=== PATIENT | male | born 1940 | race Caucasian/White ===

== ENCOUNTER 2016-11-03 12:34 | Inpatient (IN) | payer MEDICARE, OTHER ==
[~2016-11-03] VITALS: Ht 177.8 cm; Wt 134.7 kg
--- NOTE | ~2016-11-03 | DS ---
PATIENT'S NAME: SHALOM LIZ [facility] AGE: 76 Y [address] ROOM: [address] [place] [address] LOCATION: GPCU ADMIT DATE: 11/03/2016 Discharge Summary DISCHARGE DATE: 11/08/2016 FAMILY PHYSICIAN: Osbaldo Johnson MD ATTENDING PHYSICIAN: Osbaldo Johnson DISCHARGE DIAGNOSES: Include [id number] congestive heart failure, combined systolic and diastolic. Ejection fraction was difficult to determine based on his echo. SECONDARY DIAGNOSES: Include: 1. Obstructive sleep apnea on BiPAP. 2. Chronic lower extremity edema. 3. Chronic kidney disease, stage 3. 4. Chronic atrial fibrillation. PRINCIPLE PROCEDURES: Include echocardiogram and stress test. The stress test was interpreted. Initially, they thought there might be signs of ischemia, but when Dr. Stanley looked at it, he really thought that it was more of a fixed defect. FOLLOWUP: Follow up is with Dr. Johnson in 7-[address] Stanley in 2 weeks. DIET: His discharge diet is to be a diabetic 1800 mL 2 g sodium restriction diet. He is to also do daily weights. DISCHARGE MEDICATIONS: Include: 1. Furosemide 40 mg daily. 2. Glimepiride 2 mg every morning. 3. Metoprolol 25 mg p.o. b.i.d. 4. Omeprazole 40 mg daily. 5. Potassium 20 mEq daily. 6. Pravachol 40 mg daily. 7. Flomax 0.4 mg daily. 8. Warfarin 5 mg Mondays and and 2.5 mg the rest of the week. 9. [place] 5/325 one tab every 4 hours as needed for pain. 10. He has BiPAP and Colace p.r.n. for stool softener. 11. We did discontinue his pioglitazone to his CHF and we also discontinued his Rythmol as the patient does look like he is in chronic atrial fib. HISTORY OF PRESENT ILLNESS: The patient was admitted by my partner Dr. Danny Hendrix and Dr. Fan was consulted for Cardiology. He was having worsening acute shortness of breath with some left lateral chest discomfort, left shoulder pain, along with palpitations. He presented to the office and was PATIENT'S NAME: SHALOM LIZ [facility] AGE: 76 Y [address] ROOM: [address] [place] [address] LOCATION: GPCU ADMIT DATE: 11/03/2016 Discharge Summary DISCHARGE DATE: 11/08/2016 FAMILY PHYSICIAN: Osbaldo Johnson MD ATTENDING PHYSICIAN: Osbaldo Johnson evaluated by Dr. Hendrix and was sent over for admit. Dr. Stanley is his normal radar tester, but Dr. Fan consulted as he was unavailable. HOSPITAL COURSE: The patient was admitted to [facility] and placed in PCU with a congestive heart failure exacerbation. Accurate I's and O's and daily weights were ordered. Labs were ordered. He was found to have a supratherapeutic INR; so, his warfarin was held. He had EKG and echo done. He was initially started on a Lasix drip. A Cedeño was placed and he was found to be in urinary retention. His warfarin was held due to supratherapeutic INR. Daily weights were monitored and a pro-BNP was ordered, which came back I believe around 10,000 or so. The patient was kept n.p.o. and a Lexiscan was done, which basically just showed a fixed defect. On the Lexiscan, his EF was calculated at 39%. He was in a ventricular paced rhythm with his underlying rhythm of chronic atrial fib. At that point in time, it was thought best that we just needed to tune him up with his chronic kidney disease; of course, we need to monitor things there. The patient's potassium was low so that was replaced. He was on O2 and eventually that was able to be weaned off. Physical Therapy worked with the patient. He was able to ambulate well in the hallways with a walker. They were initially thinking about doing a cath, but Dr. Stanley elected not to proceed along that line. His propafenone or Rythmol was discontinued since he was in chronic atrial fib. He has had previous cardioversions; and at this point in time, Dr. Stanley just think it is going to be a permanent atrial fib issue. His potassium was replaced as needed. I did discontinue his pioglitazone due to his CHF. We will of course need to keep an eye on his diabetes at home. He was found on his x-ray to have a left pleural effusion, but it is improving. The patient's situation overall seemed to improve, he got off O2, he has been ambulating well in the [place]; so, we will dismiss him to home. We did get the congestive heart failure educator to talk to him and we stressed the importance of maintaining a low-sodium fluid-restricted diet long-term. We also encouraged the patient to weigh his weights daily and if he is up more than 2 pounds he is to let me know. The patient's and family's questions were answered. He will be dismissed to home. MD NAE HANNA/abby /[id number] d: 11/08/16 2329 t: 11/22/16 1355, DISCHARGE SUMMARY
--- NOTE | ~2016-11-03 | ESTC ---
Cardiac Perfusion Imaging Demographics Patient Name AGUSTO Grullon Gender Male Patient Number [id number] Race Visit Number [id number] Ethnicity Corporate ID Room Number G6322 Accession Number [id number] Height 70 inches Date of 1940 Weight 300 pounds Interpreting [facility] [place] Date of study 11/04/2016 Physician Kishore Ryan MD Supervising MD/MLP Kishore Ryan NM Technologist Ordering Physician Stress public works technician Stress ECG Reading Kishore Ryan Nurse Iraj Miles Physician mill tender warm up Procedure Type: Nuclear Stress Test:Cardiolite Stress Test Procedure Start time: 11/04/2016 10:27 Indications: Non-ischemic cardiomyopathy. Conclusions Summary Perfusion Images: The overall quality of the study is poor, due to extracardiac tracer uptake. Left ventricular cavity is noted to be enlarged on the stress and enlarged on the rest images. There is no evidence of abnormal lung activity. The right ventricle is not visualized an cannot be assessed. Impression ECG portion of the lexiscan stress test is clinically nondiagnostic for ischemia by diagnostic criteria due to paced ventricular beats. Myocardial perfusion imaging is moderately abnormal. The images reveal a mostly fixed defect in the entire septal wall and basal to mid inferior wall consistent with infarct . The septal wall motion and perfusion defect could be secondary to paced ventricular beats. Overall left ventricular systolic function was abnormal. Calculated LVEF is 39%, TID ratio is 0.95. LV volumes are increased, LVEDV is 162 mls. This is a intermediate risk stress test. Stress Protocols Resting ECG Ventricular paced rhythm. Underlying rhythm appears to be atrial fib. Resting HR:80 bpm Pre-stress physical exam: s1 s2, rrr no wheezing Predicted HR: 144 bpm ECG Findings Paced ventricular beats. Arrhythmias remained in afib Symptoms Shortness of breath. Aminophylline 125 mgs given iv for reversing symptoms of severe sob after lexiscan infusion. Stress Interpretation Appropriate hemodynamic response to Lexiscan. No significant ST-T wave changes with Lexiscan. ECG portion is non diagnostic for ischemia by diagnostic criteria given underlying paced ventricular beats. Imaging Results Summed scores - Summed stress score: 14 - Summed rest score: 14 - Summed difference score: 0 Stress ejection Ejection fraction:39 % EDV :162 ml ESV :99 ml Stroke volume :63 ml LV mass :166 gr Imaging Protocols Rest Stress Isotope:Tc99m Sestamibi IV Isotope: Tc99m Sestamibi IV Isotope dose:16.3 mCi Isotope dose:49.3 mCi Date:11/04/2016 08:48 Date:11/04/2016 10:40 Technique: SPECT Technique: Gated Supine SPECT Supine IV remains in place after procedure. Scan Time:45-60 minutes post Scan Time:45-60 minutes post injection injection Procedure Medications - Regadenoson (Lexiscan) 0.4 mg IV over 10-15 sec. I.V. . - Aminophylline 50 mg IV I.V. 125 mg. Medical History Admission Data Admission date: 11/03/2016 Admission Time: 12:34 Hospital Status: Inpatient. Signatures dtt: JOE GOLDEN dtd: 11/04/16 1027 Physician Self Edit
--- NOTE | ~2016-11-03 | CON ---
PATIENT'S NAME: SHALOM LIZ [facility] AGE: 76 Y [address] ROOM: [place] [address] LOCATION: GPCU ADMIT DATE: 11/03/2016 Consultation DISCHARGE DATE: FAMILY PHYSICIAN: Osbaldo Johnson MD ATTENDING PHYSICIAN: Osbaldo Johnson DATE OF CONSULTATION: 11/03/2016 REFERRING PHYSICIAN: JOE GOLDEN MD ADDENDUM: LABORATORY DATA: PT 45.2. INR 4.1. BNP 1030. Sodium 142, potassium 4.6, glucose 141, CO2 of 27, chloride 103, BUN 33, and creatinine 2.1. EGFR 32. Liver enzymes normal. CK 21, CK-MB 0.6, and troponin 0.064. EKG showed paced ventricular beats with underlying atrial fibrillation. WBC 8.3, H and H 10.6 and 34, and platelets 230. No recent echocardiogram, so I will also get an echocardiogram to assess his LVEF and valvular function as well as diastolic function. JOE GOLDEN MD AT/modl /[id number] d: 11/03/16 2219 t: 11/06/16 1009, CONSULTATION REPORT
--- NOTE | ~2016-11-03 | ECHO ---
Transthoracic Echocardiography Report (TTE) Demographics Patient Name SHALOM LIZ Date of Study 11/04/2016 Patient Number [id number] Visit Number [id number] Date of 1940 Room Number G6322 Gender Male Number Age 76 year(s) Referring Kishore Ryan Head Inspector Dylan Chilel SHARAD Physician Physician Interpreting Kishore Ryan Metal Bonder Physician MD Supervising Ordering Kishore Ryan MD/MLP Physician MD Nurse Stress Train Reservation Clerk Conclusions Summary Technically difficult exam. LV systolic function appears mild to moderately reduced. Difficult to accurately estimate LVEF due to suboptimal visualization of endocardial borders and poor echo windows. Moderate concentric left ventricular hypertrophy. Severely dilated right ventricle with mildly reduced right ventricular function. The left atrium is mildly dilated by LA volume index measurement. The right atrium is moderately dilated. Dilated IVC, 2.4 cms with poor inspiratory collapse consistent with elevated RA pressure. There is moderate pulmonary hypertension. The pulmonary pressure (RVSP) is 56 mmHg. There is evidence of a patent foramen ovale by color Doppler. Informed consent was obtained, bubble study was done, bubbles crossed to the left atrium suggesting a PFO or ASD. Left pleural effusion noted. Procedure Type of Study TTE procedure:2D Echocardiogram, M-Mode, Doppler , Color Doppler. Procedure Date Date: 11/04/2016 Start: 12:34 PM Study Location: Inpatient Portable Technical Quality: Adequate visualization Indications:Congestive heart failure. Patient Status: Routine Contrast Medium: Bubble Study. Rhythm: Within normal limits HR: 60 bpm BP: 137/77 mmHg Allergies - No known allergies. M-Mode/2D Measurements LV Diastolic Dimension: 5.09 cm LV Systolic Dimension: 3.12 cm LV Septum Diastolic: 1.27 cm LV PW Diastolic: 1.26 cm AO Root Dimension: 2.9 cm Cardiac Output: 4.08 l/min LA Dimension: 3.2 cm LVOT: 2.2 cm LVOT VTI: 17.9 cm RV Base: 5.37 cm LV Stroke volume: 68.01 ml RV Length: 8.49 cm TAPSE: 1.46 cm TDI-S': 8.22 cm/s Doppler Measurements AV Peak Velocity: 1.25 m/s MV Peak E-Wave: 1.06 m/s AV Peak Gradient: 6.25 mmHg MV Peak A-Wave: 0.34 m/s AV Mean Gradient: 3 mmHg MV E/A Ratio: 3.12 LVOT Peak Velocity: 0.95 m/s MV P1/2t: 51 msec TR Gradient:35.28 mmHg PV Peak Velocity: 1.31 m/s Estimated RAP:20 mmHg PV Peak Gradient: 6.86 mmHg Estimated RVSP: 55 mmHg Estimated PASP: 55.28 mmHg E' Septal Velocity: 0.12 m/s A' Septal Velocity: 0.07 m/s E' Lateral Velocity: 0.13 m/s A' Lateral Velocity: 0.05 m/s Findings Left Ventricle Moderate concentric left ventricular hypertrophy. Diastolic function indeterminate due to patient's arrhythmia. Paradoxical septal motion due to the pacemaker lead . Right Ventricle Mildly reduced right ventricular function. Severely dilated right ventricle. Left Atrium The left atrium is mildly dilated by LA volume index measurement. There is evidence of a patent foramen ovale by color Doppler. Informed consent was obtained, bubble study was done, bubbles crossed to the left atrium suggesting a PFO or ASD. Right Atrium Device lead seen in the right atrium. The right atrium is moderately dilated. Dilated IVC, 2.4 cms with poor inspiratory collapse consistent with elevated RA pressure. Mitral Valve Normal mitral valve structure and function. Aortic Valve Normal aortic valve structure and function. Tricuspid Valve Mild tricuspid regurgitation by color Doppler. There is moderate pulmonary hypertension. The pulmonary pressure (RVSP) is 56 mmHg. Pulmonic Valve Normal pulmonic valve structure and function. Pericardial Effusion Small posterior pericardial effusion. Miscellaneous Visualized portions of the aortic root and ascending aorta appear normal in size. Pleural Effusion Left pleural effusion noted. Signature dtt: JOE GOLDEN dtd: 11/04/16 1234 Physician Self Edit
--- NOTE | ~2016-11-03 | CON ---
PATIENT'S NAME: SHALOM LIZ [facility] AGE: 76 Y [address] ROOM: [address] [place], [place] [address] LOCATION: GPCU ADMIT DATE: 11/03/2016 Consultation DISCHARGE DATE: FAMILY PHYSICIAN: Osbaldo Johnson MD ATTENDING PHYSICIAN: Danny Hendrix REFERRING PHYSICIAN: JOE GOLDEN MD REQUESTING PROVIDER: Dr. Danny Hendrix. REASON FOR CONSULTATION: Shortness of breath. HISTORY OF PRESENTING ILLNESS: The patient is a very pleasant, 76-year-old male, Pt of Dr. Stanley. 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 He has history of paroxysmal atrial fibrillation for which he has had 2 cardioversions in the past. He also had Mobitz type II AV block for which he underwent permanent pacemaker implantation about 2 years ago. He has history of obstructive sleep apnea, on BiPAP. He also has been on antiarrhythmic (propafenone) as well as long-term oral anticoagulation with Coumadin. He is morbidly obese. He has urinary obstruction and self-catheterizes himself. He also has history of chronic kidney disease. He is diabetic, and he is on pioglitazone for that. His last cath was in 2004, with non obstructive CAD. The patient reports this morning he started having acute shortness of breath associated with left-sided chest pain and left shoulder pain along with palpitations and mild diaphoresis for about 10 minutes. It resolved on its own. He called his primary care doctor's office and they asked him to come to their clinic or call 911 depending on how bad his symptoms are. He ended up going to the primary care office to get evaluated further. He did receive a chest x-ray there, which is suggestive of volume overload and congestive heart failure. The patient reports while he got up to go to his car he had recurrent symptoms of shortness of breath, but did not have chest pain at that time. He has not had any recurrence in his chest pain. He reports occasional palpitations, but during interview after oxygen was started, he reports he is much better. He is being admitted for acute CHF exacerbation. The patient reports he has not urinated since yesterday. He did not get a chance to self-catheterize himself for the last 18 hours. No cough or sputum production. No fever or chills. He does not have any stroke-like symptoms. No abdominal pain, nausea, vomiting, diarrhea, or constipation. REVIEW OF SYSTEMS: PATIENT'S NAME: SHALOM LIZ [facility] AGE: 76 Y [address] ROOM: [address] [place], [place] [address] LOCATION: GPCU ADMIT DATE: 11/03/2016 Consultation DISCHARGE DATE: FAMILY PHYSICIAN: Osbaldo Johnson MD ATTENDING PHYSICIAN: Danny Hendrix Ten-point review of systems discussed with the patient, pertinent positives and negatives mentioned in the history of presenting illness. HOME MEDICATIONS: 1. Propafenone 225 mg t.i.d. 2. Metoprolol 25 mg b.i.d. 3. Glimepiride 2 mg daily. 4. Pravachol 40 mg at bedtime. 5. Tamsulosin 0.4 mg daily. 6. Coumadin 5 mg and 2.5 mg depending on the day. 7. Pioglitazone 45 mg daily. 8. Lasix 40 mg every other day and 80 mg every other day. 9. [place] 5/325 mg p.r.n. 10. BiPAP. 11. Colace 100 mg daily. 12. Omeprazole 40 mg daily. ALLERGIES: NONE. PAST MEDICAL HISTORY: Paroxysmal atrial fibrillation, post-cardioversion August 20, 2013 and July 20, 2014; long-term anticoagulation with warfarin; Mobitz type II AV block requiring [employer]ando's dual-chamber pacemaker; obstructive sleep apnea, on BiPAP at night without oxygen; high-risk medications, propafenone; hypertension; diabetes mellitus type 2, on oral meds; hyperlipidemia; nonobstructive coronary artery disease per records; obesity; and venous insufficiency. PAST SURGICAL HISTORY: Umbilical hernia repair, left heart cath in 2004, colonoscopy in 2008, cardioversion in August and July of 2014, and [employer] pacemaker in August of 2013. FAMILY HISTORY: No premature coronary artery disease or sudden cardiac . SOCIAL HISTORY: Tobacco abuse: He smoked for 34 years 1 pack per day and quit in 1989. No alcohol or illicit drug abuse. PHYSICAL EXAMINATION: VITAL SIGNS: Blood pressure 140/90, respirations 18, O2 saturations 95% on 2 L of oxygen, tele paced ventricular beats with underlying sinus, afebrile. GENERAL: Well nourished, obese, not in any apparent distress. PATIENT'S NAME: SHALOM LIZ [facility] AGE: 76 Y [address] ROOM: [address] [place] [id number] LOCATION: GPCU ADMIT DATE: 11/03/2016 Consultation DISCHARGE DATE: FAMILY PHYSICIAN: Osbaldo Johnson MD ATTENDING PHYSICIAN: Danny Hendrix HEENT: Normocephalic. Mucous membranes moist. Extraocular movements are intact. Sclerae white. No xanthelasmas. NECK: Supple. No significant JVD. HEART: S1, S2. Regular rate and rhythm. No murmurs, gallops, or rubs. LUNGS: Decreased breath sounds in the right base. No wheezing. ABDOMEN: Obese. Bowel sounds positive. EXTREMITIES: Mild bilateral lower extremity edema. NEUROLOGIC: Oriented to place, person. No focal deficits. Able to move all extremities against gravity. DERM: Skin is warm and dry. PSYCH: Mood and affect are normal. ASSESSMENT: 1. Congestive heart failure exacerbation. 2. Chest pain. 3. Palpitations. 4. Diabetes mellitus type 2. 5. History of dual-chamber pacemaker for Mobitz type II AV block. 6. Long-term anticoagulation with Coumadin and supratherapeutic INR of 4.1. 7. Obstructive sleep apnea, on BiPAP. 8. Hyperlipidemia. 9. Chronic kidney disease, stage 3. 10. Afib, pt's underlying rhythma appears to be afib, with paced ventricular beats. PLAN: At this time, the patient appears to have significant urinary retention, placed Cedeño and got about 2 L of urine output. I will continue to monitor I's and O's closely. We will hold his oral Lasix and start IV Lasix 40 mg IV b.i.d. We will check proBNP and if he rules out NH, I think given the chest pain, diaphoresis as well as recurrent episodes of dyspnea, it is reasonable to get an ischemic workup at this time. We will go ahead and order a Lexiscan stress test. Depending on his urine output, we will likely switch to p.o. Lasix tomorrow. I do see episodes of atrial fibrillation off and on; however, he is on anticoagulation for this and his rates are very well controlled. We will also check his fasting lipid profile and adjust his statin if necessary. Consider discontinuing pioglitazone given his CHF exacerbation and use alternate agent if possible. Avoid NSAIDs and nephrotoxic agents. We will continue oxygen during the daytime and resume his BiPAP at night during this hospitalization. We will get strict I's and O's. Keep O2 saturations greater than 90%. Low- salt diet. PATIENT'S NAME: SHALOM LIZ [facility] AGE: 76 Y [address] ROOM: [address] [address] [facility] AD[facility] DATE: 11/03/2016 Consultation DISCHARGE DATE: FAMILY PHYSICIAN: Osbaldo Johnson MD ATTENDING PHYSICIAN: Danny Hendrix Since his INR is supratherapeutic, we will hold the Coumadin and restart once it is less than 3. Thank you very much for allowing us to participate in the care of Mr. Liz, and we will follow the patient while motion picture printer and let Dr. Stanley know after the weekend. Will interrogate pacemaker to evaluate afib burden. Thank you very much, Dr. Hendrix. JOE GOLDEN MD AT/modl /[id number] d: 11/03/164 t: 11/06/16 1004, CONSULTATION REPORT
[~2016-11-03 12:34] MED LIST: ACTOS45 MG PO; AMARYL2 MG PO; BIPAP INH; COLACE100 MG PO; COUMADIN ** IA5 MG PO; CPAP INH; FLOMAX0.4 MG PO; LASIX40 MG PO; LOPRESSOR25 MG PO; LOVENOX 12120 MG/0.8 SUB-Q; NORCO 5-325 TA1 EACH PO; OXYGEN M-15 INH; PRAVACHOL40 MG PO; PRILOSEC40 MG; RYTHMOL225 M1 PO
[2016-11-03] MEDS ORDERED: LASIX40 MG PO (14:08)
[2016-11-03] MEDS ORDERED: OMEPRAZOLE40 MG PO (14:14)
--- NOTE | 2016-11-03 15:58 | NUR ---
76 Y/O MALE ADMITTED FOR CHEST PAIN. PT HAD APPT WITH THIS MORNING AND OFFICE SENT PT TO HOSPITAL TO BE ADMITTED. PT IS ALSO C/O INCREASED SOB OVER THE LAST SEVERAL WEEKS. PT HAS NO KNOWN MEDICATION ALLERGIES MEDICAL & SURGICAL HISTORY - UMB HERNIA REPAIR, TONSILS, CARDIONVERSIONS X2 WITH IN THE SAME HOSPITAL STAY, [facility] PACEMAKER INSERTION, BILAT CATARACT WITH IOLI. CAD, DMII, A-FIB/A FLUTTER, P.E. IN 2011, DVT OF LT LEG IN 1979', VATICOSE VEINS, VINOUS INSUFFICIENCY & VENOUS STAINING NOTED, HIGH CHOLESTEROL, PACEMAKER, SLEEP APNEA, HOME BI-PAP, ARTHRITIS, HX GOUT, URINARY RETENTION, PT DOES SELF CATH 3X/DAY (USUALLY AT 0800, 1400, AND 2200). FORMER SMOKER X36 YRS DID QUIT IN 1989. PT USES A WALKER AT HOME AND STATES THAT HE DOES NOT GO OUT SHOPPING ANYMORE HE IS TOO SHORT OF BREATH. PT IS A&OX3. REPORT GIVEN TO PT PRIMARY CARE NURSE DARELL ALMAGUER ADM EDUC COMPLETED WITH PT, & DAUGHTER.
[2016-11-03 17:45] LABS: CPK 29 IU/L (35-332)
--- NOTE | 2016-11-03 19:07 | NUR ---
Significant Event: A/O X3. UP WITH 1 ASSIST TO STAND AT BEDSIDE. RIGHT UPPER FA POWERGLIDE PLACED, SL'D. 2L O2 APPLIED D/T HYPOXIA, 88-89% ON ROOM AIR. LYN CATHETER PLACED, 2100 ML UOP IMMEDIATELY AFTER PLACEMENT. NPO AFTER MIDNIGHT FOR STRESS TEST IN AM. LASIX 40 MG IV BID. @ BEDSIDE. Follow up: CONTINUE TO MONITOR.
--- NOTE | 2016-11-04 04:55 | NUR ---
Significant Event: Patient alert/oriented x3. Vital signs stable. On 2L O2 with CPAP at night. Denies any pain. Cedeño in place, good UOP. AM labs pending. NPO since midnight. Follow up: Lexiscan stress test this AM.
[2016-11-04 06:00] LABS: BASOPHIL % 0.5 %; EOSINOPHIL # 0.1 K/uL (0.0-0.5); EOSINOPHIL % 0.7 %; HEMATOCRIT 34.3 % (37.0-53.0); HEMOGLOBIN 10.7 g/dL (11.0-16.0); IMMATURE GRANULOCYTE # 0.1 K/uL (0.0-0.3); IMMATURE GRANULOCYTE % 0.7 %; LYMPHOCYTE # 0.5 K/uL (0.8-4.0); LYMPHOCYTE % 5.7 %; MCH 28.9 pg (27.0-34.0); MCHC 31.2 gm/dL (32.0-36.5); MCV 92.7 fl (83.0-98.0); MONOCYTE # 0.9 K/uL (0.0-1.0); MONOCYTE % 10.2 %; MPV 9.7 fl (9.4-12.4); NEUTROPHIL # (ANC) 7.2 K/uL (1.4-9.0); NEUTROPHIL % 82.2 %; NRBC % 0 /100WBC (0-0.00); PLATELET COUNT 244 K/uL (150-450); RDW-CV 14.5 % (11.9-14.6); WBC 8.7 K/uL (4.0-11.0)
[2016-11-04 06:14] LABS: ANION GAP 12.3 (10.0-19.0); CALCIUM 8.5 mg/dL (8.5-10.5); POTASSIUM 3.3 mMol/L (3.7-5.1)
[2016-11-04 06:32] LABS: CPK 27 IU/L (35-332)
[2016-11-04 13:30] LABS: INR - (THERAPEUTIC) 3.4 (0.9-1.1); PROTIME 39.7 SECONDS (9.6-11.1)
--- NOTE | 2016-11-04 16:04 | NUR ---
Significant Event: A/O X3. UP WITH 1 ASSIST. STRESS TEST THIS AM, SLIGHTLY ABNORMAL. WILL CONTINUE ON IV LASIX BID. POSSIBLE CATH SUNDAY WITH DR. MONTANEZ. RIGHT UPPER FA POWERMAGGIE HALL'Ginger. 2D ECHO DONE TODAY, RESULTS PENDING. O2 1-3L NC, SHORTNESS OF BREATH WITH ACTIVITY AND ANXIETY. VSS. DENIES PAIN. LYN PATENT WITH 725 ML UOP. PLEASANT AND COOPERATIVE WITH CARES. Follow up:
--- NOTE | 2016-11-05 04:13 | NUR ---
Significant Event: Patient is alert/oriented x3. Vital signs stable. On 1-2L O2 per NC and CPAP at night. Denies any pain. Cedeño in place with good UOP. Follow up: Continue to monitor. Possible heart cath on Sunday? Dr. Stanley to see.
[2016-11-05 06:31] LABS: HEMATOCRIT 32.8 % (37.0-53.0); HEMOGLOBIN 10.4 g/dL (11.0-16.0); MCH 29.2 pg (27.0-34.0); MCHC 31.7 gm/dL (32.0-36.5); MCV 92.1 fl (83.0-98.0); MPV 9.5 fl (9.4-12.4); PLATELET COUNT 224 K/uL (150-450); RBC 3.56 M/uL (3.50-5.50); RDW-CV 14.3 % (11.9-14.6); WBC 6.8 K/uL (4.0-11.0)
[2016-11-05 06:39] LABS: INR - (THERAPEUTIC) 3.1 (0.9-1.1); PROTIME 36.4 SECONDS (9.6-11.1)
[2016-11-05 06:42] LABS: ANION GAP 12.8 (10.0-19.0); CALCIUM 8.8 mg/dL (8.5-10.5); CREATININE 1.9 mg/dL (0.6-1.3); POTASSIUM 3.8 mMol/L (3.7-5.1)
[2016-11-05 06:56] LABS: ABSOLUTE NEUTROPHIL CT (ANC) 5.9 K/uL (1.4-9.0); BANDED NEUTROPHIL # 0.4 K/uL (0.0-0.1); BANDED NEUTROPHILS % 6 %; LYMPHOCYTE # 0.4 K/uL (0.8-4.0); LYMPHOCYTE % 6 %; MONOCYTE # 0.5 K/uL (0.0-1.0); SEGMENTED NEUTROPHIL # 5.5 K/uL (1.4-9.0); SEGMENTED NEUTROPHIL % 81 %
--- NOTE | 2016-11-05 15:25 | NUR ---
Significant Event: A/O X3. UP WITH 1 ASSIST & GB. MIDLINE SL'D TO RIGHT UPPER FA. O2 @ 1L NC. CONTINUES ON IV LASIX BID. LYN PATENT, 700 ML UOP. DENIES PAIN. SHOWERED. BM X1. NPO AFTER MIDNIGHT FOR POSSIBLE HEART CATH TOMORROW. Follow up:
--- NOTE | 2016-11-06 04:16 | NUR ---
Significant Event: Patient A/Ox3. VSS on 1L and on Bipap at night. Patient up 1-assist with gait belt. One loose BM this shift. Voids per weathers due to retention. 700ml UOP this shift. NPO since midnight. Follow Up: Pacer interrogation today. Dr. Stanley to see today.
[2016-11-06 05:04] LABS: INR - (THERAPEUTIC) 2.7 (0.9-1.1); PROTIME 30.4 SECONDS (9.6-11.1)
[2016-11-06 05:14] LABS: ANION GAP 13.4 (10.0-19.0); CALCIUM 8.8 mg/dL (8.5-10.5); CREATININE 1.9 mg/dL (0.6-1.3); POTASSIUM 3.4 mMol/L (3.7-5.1)
--- NOTE | 2016-11-06 12:14 | NUR ---
Introduced self and care management services to patient and at bedside. Lives in [place]. Plans on going home on discharge. Does not use O2 at home, used to use it at night with CPAP and then when switched over to BIPAP at home did not require O2 with it. Not sure if he will need it on discharge or not. Respiratory therapy working on weaning O2. Grinder Set Up Operator Surface will follow and assist with dc planning as needs identified.
--- NOTE | 2016-11-06 17:27 | NUR ---
Significant Event: GOOD DAY, NO HRT CATH. EATTING OK. UP WITH PT, WORKED WITH OT. STILL DIURESING. PLEASENT AND COOPERATIVE WITH CARES. ACHS ACCUCHECKS, EXTRA K+ TODAY FOR K+ OF 3.4 Follow up: MONITOR
[2016-11-07 03:52] LABS: ALBUMIN 2.6 gm/dL (3.5-5.0); ANION GAP 12.7 (10.0-19.0); CALCIUM 8.4 mg/dL (8.5-10.5); CREATININE 1.9 mg/dL (0.6-1.3); MAGNESIUM 1.9 mg/dL (1.3-2.6); PHOSPHORUS 2.8 mg/dL (2.5-4.9); POTASSIUM 3.7 mMol/L (3.7-5.1)
--- NOTE | 2016-11-07 04:56 | NUR ---
Significant event: A/O x 3. Up in room with 1 assist walker and gait belt. Cedeño intact with 450ml UOP. Rested well with the c-pap on throughout the night. No c/o pain all VSS.
[2016-11-07 09:45] LABS: INR - (THERAPEUTIC) 2.5 (0.9-1.1); PROTIME 28.7 SECONDS (9.6-11.1)
--- NOTE | 2016-11-07 10:51 | NUR ---
Diabetes consult: Visited with the patient regarding his diabetes and assessed his educational needs. The patient is knowledgeable about his diabetes. A1C is not available. It has been requested from the clinic. Blood sugars are well controlled at 112-186. Diabetes survival skills assessment form completed.
--- NOTE | 2016-11-07 14:50 | NUR ---
LWO SODIUM DIET EDUCATION COMPLETED W/PT AND PT'S . WENT OVER WRITTEN HANDOUT AND ANSWERED QUESTIONS. PT HAS A LOT OF CANNED SOUP; ENCOURAGED PT TO USE THE LOW SODIUM SOUP. PT DOES NOT ADD SALT AT THE TABLE. WRITTEN INFORMATION LEFT, ALONG WITH RD CONTACT INFO. ENCOURAGED TO CALL WITH ANY QUESTIONS.
--- NOTE | 2016-11-07 17:49 | NUR ---
Significant Event: GOOD DAY, UP AND WALKED IN CANO WITHOUT O2, STILL DIURESIS WITH LASIX BID. IN ROOM MOST OF DAY. PT IN CHAIR MOST ALL OF THIS SHIFT, TRIED TO SIT WITH FEET UP AND DID FOR A COUPLE OF HOURS, THEN HIS BACK STARTED TO HURT. Follow up: MAYBE HOME TOMARROW?
--- NOTE | 2016-11-08 05:11 | NUR ---
Significant Event: Patient a/ox3. VSS on RA. Up 1-assist with walker and gait belt. 750 out of weathers this shift. No significant changes. Pleasant and cooperative with cares. Follow up: Home today?
[2016-11-08 06:01] LABS: ANION GAP 14.2 (10.0-19.0); CALCIUM 8.7 mg/dL (8.5-10.5); CREATININE 1.6 mg/dL (0.6-1.3); POTASSIUM 3.2 mMol/L (3.7-5.1)
--- NOTE | 2016-11-08 11:33 | NUR ---
A-SCREENED D/T LOS BEING DIURESED. (+)BS; (+)BM HT: 70 IN. CBW: 134.7 KG (STANDING SCALE) ADMIT WT: 137.1 KG (BED SCALE) BMI: 42.6 LABS: NA 142, K+ 3.2, GLU 73, BUN 41, LAND ACQUISITION ANALYST 1.6, ALB 2.6 MEDS: LASIX, K-TAB, NOVOLOG (MILD SS), PROTONIX, AMARYL, NORCO, PRN BOWEL MEDS DIET RX: CARDIAC/2-3 GM NA DIET W/2000 ML FLUID RESTRICTION. PO INTAKE SINCE ADMIT HAS BEEN 50-100%; MOSTLY BEING 75-100% EST NUTR NEEDS: [id number] KCALS (13-17 KCALS/KG) 112-150 GM PROTEIN (1.5-2.0 GM/KG IBW) FLUID PER MD D-NOT AT NUTRITION RISK; NO NUTRITION DX IDENTIFIED I-CONTINUE CURRENT DIET RX M/E-WILL ASSIST NEEDED
[2016-11-08] MEDS ORDERED: K-TAB ER20 MEQ PO (12:55)
--- NOTE | 2016-11-08 16:01 | NUR ---
1420 PT DISMISSED TO HOME WITH TO DRIVE. AT TIME OF DC PT IS A/O PINK WARM AND DRY. DENIES PAIN. FAIRLY STEADY ON FEET WHEN UP, DOES REQUIERED WALKER AND GAIT BELT, ONCE HE GETS TO WALKING HE DOES VERY WELL. LUNGS CLEAR DIMINISHED UPPER AND DIMINISHED LOWER. ABDOMEN SOFT AND NONTENDER WITH PRESENT BOWEL SOUNDS, PULSES PALPABLE, HE DOES HAVE GENERAL ALL OVER EDEMA, LOWER EXTREMITIES ARE MORE LIKE A 1-2+ EDEMA. HE TRYS TO SIT WITH FEET UP, BUT SITTING IN A RECLINER WITH HIS FEET UP HURTS HIS BACK HE SAYS. IV TO UPPER LATERAL ARM DC'D WITHOUT COMPLICATIONS. LYN DC'D ALSO WITHOUT COMPLICATINS. PT SAYS HE SELF CATHS TID AT HOME. VSS, SATS 92% ON DC. DC INSTRUCTIONS, PRESCRIPTIONS, MEDICATION INSTRUCTIONS, FOLLOW UP CARE AND APPOINTMENTS ALL WENT OVER WITH PT AND , BOTH VERBALIZE UNDERSTANDING. NEITHER HAVE ANY QUESTIONS. W/C TO [facility] [place] [facility] FOR DC TO HOME.
== END 2016-11-08 14:50 | disposition disaster alternative care site (69) | DRG 292 ==
LOC: GPCU 12:34
PROVIDERS: Internal Medicine Interventional Cardiology; Nurse Practitioner Acute Care; Obstetrics & Gynecology Obstetrics; ADMIT Family Medicine
DX: I50.43 Acute on chronic combined systolic (congestive) and diastolic (congestive) heart failure (principal); I42.8 Other cardiomyopathies; E11.22 Type 2 diabetes mellitus with diabetic chronic kidney disease; I48.92 Unspecified atrial flutter; I44.1 Atrioventricular block, second degree; Z99.81 Dependence on supplemental oxygen; Z68.41 Body mass index [BMI] 40.0-44.9, adult; G47.33 Obstructive sleep apnea (adult) (pediatric); N18.3 Chronic kidney disease, stage 3 (moderate); N13.9 Obstructive and reflux uropathy, unspecified; Z95.0 Presence of cardiac pacemaker; Z86.718 Personal history of other venous thrombosis and embolism; Z79.01 Long term (current) use of anticoagulants; I48.2 Chronic atrial fibrillation; Z87.891 Personal history of nicotine dependence; I12.9 Hypertensive chronic kidney disease with stage 1 through stage 4 chronic kidney disease, or unspecified chronic kidney disease
CPT/HCPCS: A9500; C1751; G8978; G8979; G8980; G8981; G8982; G8983; J0280; J1940; J2785

== ENCOUNTER 2016-11-09 08:25 | Observation (INO) | payer MEDICARE, OTHER ==
[~2016-11-09] VITALS: Ht 177.8 cm; Wt 136.6 kg
--- NOTE | ~2016-11-09 | ER ---
PATIENT'S NAME: SHALOM LIZ [facility] AGE: 76 Y [address] ROOM: [place] [address] [facility] ADMIT DATE: 11/09/2016 ER/Outpatient Report DISCHARGE DATE: FAMILY PHYSICIAN: Osbaldo Johnson MD ATTENDING PHYSICIAN: Osbaldo Johnson Admission date and time documented in the medical record. I saw the patient at 0830 hours. CHIEF COMPLAINT: Left anterior chest pain. HISTORY OF PRESENT ILLNESS: This patient is a 76-year-old male who had onset of left anterior chest pain at 0630 hours this morning. At that time, it was a 6/10. [facility] along with our paramedics did bring the patient to the emergency room by ambulance for evaluation. En route, he got one nitroglycerin sublingual which brought his pain down from a 6/10 to a 2/10. He also received four baby aspirin en route. On arrival, the patient is awake, alert, responsive. Pain was still of 2/10. We did give him one additional nitroglycerin that brought it down to about 1/10. He had no diaphoresis, but was lightheaded, no short of breath but he is chronically short of breath. His O2 saturation at home was around 91% on no oxygen. Presently on 2 L of oxygen per nasal cannula. The patient just got out of the hospital yesterday because of palpitations, tachycardia, increased shortness of breath. They elected not to cath him at that time. His most recent catheterization was in November of 2014 and his coronary arteries were normal at that time. He does have multiple medical problems however. No fall or trauma. No headache, eyes, ears, nose, throat, neck, or spine pain. No syncope. No abdominal pain, nausea, vomiting, diarrhea, or urinary complaints. No joint or muscle swelling, redness, or pain. No skin eruptions or rash. Does have a history of non-insulin- dependent diabetes mellitus. No other endocrine problems. No neuro changes. No psych issues. HOME MEDICATIONS: See attached medication list. ALLERGIES: NONE. SOCIAL HISTORY: Nonsmoker, nondrinker. SIGNIFICANT PAST MEDICAL HISTORY: Atherosclerotic ischemic heart disease with coronary artery disease; PATIENT'S NAME: SHALOM LIZ [facility] AGE: 76 Y [address] ROOM: [address] [place], [place] [address] LOCATION: [facility]U ADMIT DATE: 11/09/2016 ER/Outpatient Report DISCHARGE DATE: FAMILY PHYSICIAN: Osbaldo Johnson MD ATTENDING PHYSICIAN: Osbaldo Johnson obstructive sleep apnea, using CPAP; congestive heart failure, systolic and diastolic; chronic kidney disease; chronic atrial fibrillation; gastroesophageal reflux; zdt-qdxjods-yphhmibbz diabetes mellitus; hypertension; deep vein thrombosis; exogenous obesity; degenerative osteoarthritis; long-term anticoagulation with Coumadin; dyslipidemia; high- risk medications. OPERATIONS: Colonoscopy; flex sigmoidoscopy with biopsies; pacemaker insertion; electrical cardioversion; cardiac catheterization. REVIEW OF SYSTEMS: All systems reviewed by me are negative with exception of those discussed in the history of present illness. PHYSICAL EXAMINATION: VITAL SIGNS: Temperature 98.5 tympanic, pulse 119 regular, respirations 18, blood pressure 125/59, O2 saturation on room air is 91%. Junior Coma Scale was 15. HEAD: Normocephalic. EYES, EARS, NOSE, THROAT: Clear. Mucous membranes moist. NECK: No nuchal rigidity. No thyromegaly or cervical adenopathy. No tenderness. SPINE: Negative. LUNGS: Fine basilar rales, otherwise, fairly clear. No rhonchi, no wheezes. HEART: Regular tachy. Pulses palpable. ABDOMEN: Obese, soft, nontender. Good bowel tones. No organomegaly or abnormal mass palpable. No CVA tenderness. EXTREMITIES: No pitting edema. No cyanosis. No deformity. Neurovascularly intact. SKIN: Clear. No skin eruptions or rash. DIAGNOSTIC DATA: EKG showed pacer rhythm. Chest x-ray showed cardiomegaly with increased vascular congestion. It looks like a persistent left pleural effusion. We will review all plain films with the radiologist. LABORATORY DATA: ProBNP was 6584. CMS was normal except for a low potassium of 3.4, low calcium of 8.4, elevated BUN of 43, elevated creatinine 1.8, low GFR 37, magnesium was 2. CPK was 24. Point of care cardiac enzymes were normal. White count 7500, 78 segs, 7 lymphs, 11 monos, 3 eos. Hemoglobin was 10.1 with hematocrit 31.6, platelet count is 235,000. PTT was 46, pro-time was 27.4, with an INR of 2.4. Did give the patient one sublingual nitroglycerin here in the emergency department, had a little bit improvement in the chest PATIENT'S NAME: SHALOM LIZ [facility] AGE: 76 Y [address] ROOM: [id number] [place], [place] [address] [facility] ADMIT DATE: 11/09/2016 ER/Outpatient Report DISCHARGE DATE: FAMILY PHYSICIAN: Osbaldo Johnson MD ATTENDING PHYSICIAN: Osbaldo Johnson pain from a 2 to 08/22. Within half hour to 40 minutes, his pain came back, so we started him on a nitroglycerin drip and will titrate that for his chest pain. As stated above, he did get four baby aspirin en route in the ambulance. IMPRESSION: 1. Left anterior chest pain, unstable angina, with a history of coronary artery disease. 2. Congestive heart failure systolic and diastolic. 3. Obstructive sleep apnea, using CPAP. 4. Chronic kidney disease. 5. Chronic atrial fibrillation, presently regular, being paced with pacemaker. 6. Bvh-picqjiv-vtonmnmlg diabetes mellitus. 7. Hypertension. 8. Exogenous obesity. 9. Long-term anticoagulation with Coumadin. 10. Dyslipidemia. 11. High-risk medications. PLAN: I did discuss this patient with Dr. Johnson and Dr. Stanley. The patient will be admitted to PCU telemetry for further evaluation and treatment. Most likely, this patient will go to laborer concrete plant to get a heart catheterization. Discussion ensued with the patient, concerning my findings and recommendations, he understands. MD KAIDEN NIEVES/modl /[id number] d: 11/09/16 1559 t: 11/10/16 0618, OUTPATIENT REPORT
--- NOTE | ~2016-11-09 | CATH ---
Cardiac Diagnostic Report Demographics Patient Name AGUSTO Grullon Gender Male Date of 1940 Age 76 year(s) Patient Number [id number] Date of Study 11/09/2016 Visit Number [id number] Room Number G6[address] [place] [id number] Ht 177 cm Wt 134.3 kg Referring Alex Mccollum Primary Physician Physician Performing [place] Secondary Physician Physician Shelby DEL ROSARIO Diagnostic [facility] Assisting Physician Physician Shelby DEL ROSARIO Interventional Physician Narcotics Investigator Physician Findings and Conclusions Diagnostic Findings and Conclusion Mild CAD of prox LAD and Mix CX wtih focal 20% stenosis. Diagnostic Recommendations Aggressive medical therapy for coronary artery disease. Patient will be observed overnight. Hydration and followup creatinine. Patient has been instructed to not lift anything more than 5 pounds for 1 week. Optimize LV systolic function. Patient was Vpacing at 110 bpm in the cardiac ammunition assembly i laborer, will interrogate PPM and adjust atrial tracking/reduce max rate on Vpacing. I would like to thank Dr. Dr. Stanley for the opportunity to participate in the care of Mr. Coleman . Procedure Description The patient was brought to the diagnostic cardiac catheterization-EP laboratory in the fasting, non-sedated state. Informed consent was obtained in the written and verbal form after the risks and benefits were explained. The patient had no further questions and agreed to proceed. The planned puncture-incision site(s) were shaved and prepped with ChloraPrep and draped in the usual sterile manner. Conscious sedation, supplemental oxygen, and pain control medications were delivered by a registered nurse under physician guidance. Surface ECG rhythm, blood pressure measurement, and pulse oximetry were monitored throughout the procedure. Arterial access. The access site was infiltrated with lidocaine. The vessel was entered with the Seldinger technique. A sheath was advanced into the vessel and used for catheter placement. Selective left coronary angiography. A catheter was advanced into the left coronary vessel ostium under Fluoroscopic guidance. Contrast was injected by hand. Images were obtained in multiple projections. Selective right coronary angiography. A catheter was advanced into the right coronary vessel ostium under fluoroscopic guidance. Contrast was injected by hand. Images were obtained in multiple projections. Arterial artery hemostasis was achieved. The patient was transferred to a regular nursing floor via cart accompanied by a nurse. The patient left the laboratory in stable condition. Procedure Procedure Type Diagnostic procedure:Angiography:, Coronary Angios Indications: Chest pain and Abnormal ECG. Angiographic Findings Dominance: Right Cardiac Arteries and Lesion Findings LMCA: Normal (0% Stenosis). LAD: Diagonal normal. Lesion on Prox LAD: 20% stenosis . LCx: Lesion on Mid CX: 20% stenosis . RCA: PL normal. PDA normal. Lesion on Dist RCA: 20% stenosis . Ramus: Normal (0% Stenosis). Coronary Tree Procedure Data Procedure Date Date: 11/09/2016Start: 11:14 AMEnd: 11:33 AM Entry Locations - Retrograde Percutaneous access was performed through the Right Radial artery (Primary location). A 6 Fr sheath was inserted. Hemostasis was successfully obtained using Mechanical Compression. Closure Comments: R band with 18 cc air deployed by RT. Faizan. Procedure Medications Order and Administration + + + +--------+ !Time !Medication !Dosage !Route ! + + + +--------+ !11/09/2016 11:13 AM !Oxygen !2 l/min !NC ! + + + +--------+ !11/09/2016 11:13 AM !Versed !0.5 mg !I.V. ! + + + +--------+ !11/09/2016 11:14 AM !Fentanyl !25 mcg !I.V. ! + + + +--------+ !11/09/2016 11:18 AM !Oxygen !4 l/min !NC ! + + + +--------+ !11/09/2016 11:22 AM !Heparin (ACC_3) !2500 units !I.V. ! + + + +--------+ Devices Used - A5 Fr. BS JR 4 Diag. Catheterwas used for:Right coronary angiography. - A5 Fr. BS JL 3.5 Diag. Catheterwas used for:Left coronary angiography. Contrast Material - Isovue 96308 ml Fluoroscopy Time: Diagnostic: 2:54 minutes. Total: 2:54 minutes. Fluoroscopy Dose: Diagnostic: 852 mGy. Total: 852 mGy. Estimated Blood Loss: 10 ml. Medical History Allergies - No known allergies. Risk Factors The patient risk factors include:hypertension, family history of premature CAD, orally-treated diabetes mellitus, last creatinine: 1.8 mg/dl, creatinine clearance: 66.32 ml/min, dyslipidemia and former tobacco use. Admission Data Admission Date: 11/09/2016 Admission Time: 10:24 AM Admit Source: Emergency department Insurance Payors: Medicare. Clinical Evaluation Leading to Procedure - The patient's CAD presentation was assessed as: Unstable angina. - The patient's anginal syndrome during the past two weeks was assessed as: Class IV according to the [place] Cardiovascular Society Classification System (CCS). Anti-anginal medications were prescribed during the past two weeks. Hemodynamics Condition: Rest O2 Consumption: Estimated: 327.11Heart Rate: 118 bpm Pressures (mmHg) +-----+ + !Site !Pressure ! +-----+ + !AO !108/72 (88) ! +-----+ + !AO !118/58 (80) ! +-----+ + Shunts Oxygen Values O2 Consumption 327.11 Signatures dtt: SHELBY GOLDEN dtd: 11/09/16 1114 Physician Self Edit
--- NOTE | ~2016-11-09 | CON ---
PATIENT'S NAME: SHALOM LIZ [facility] AGE: 76 Y [address] ROOM: [address] [place] [address] LOCATION: GPCU ADMIT DATE: 11/09/2016 Consultation DISCHARGE DATE: FAMILY PHYSICIAN: Osbaldo Johnson MD ATTENDING PHYSICIAN: Osbaldo Johnson DATE OF CONSULTATION: 11/11/2016 REFERRING PHYSICIAN: Sushant Stanley MD CONSULTING PHYSICIAN: Osbaldo Johnson MD REASON FOR CONSULTATION: "Difficulty with self-catheterization." HISTORY OF PRESENT ILLNESS: This is a 76-year-old gentleman with a long history of atonic bladder, managed with self-catheterization. He was evaluated years ago. That included cystoscopy and urodynamic testing. He was managed with self intermittent catheterization. He has continued that. We have not seen him for over 5 years. Shalom tells me he was catheterizing 3 times a day. He was not voiding any in between. He has chronic renal insufficiency which he follows with Dr. Webb. In review of the records, it looks like his creatinine has been relatively stable over the years. He peaked at 2.0. He is 1.4 as of today. Importantly, as we will see, he has not had any upper tract changes on the CT scan. In any event, Shalom was recently admitted. He has congestive failure. He had some medication adjustment, and it sounds like he was also put on a fluid restriction. Importantly, Shalom tells me he was not having any trouble at all getting the catheter in. He was only concerned because of diminished output. I suspect this is a reflection of his fluid restriction. In addition, the nurses placed a catheter yesterday, and they did not have any trouble getting the catheter in. Relative to that, the plan was for Shalom to go home today. I told him that he could go home with the catheter or resume his self-catheterization, whichever way he was more comfortable. Now that we realize he is not having any trouble with the self-catheterization and that he is reassured by the fact that his decreased output is more a reflection of his decreased input than any problems he is having with his self-catheterization, he would rather have the catheter out. I think that is reasonable. PATIENT'S NAME: SHALOM LIZ [facility] AGE: 76 Y [address] [place] [facility] [place] [place], [place] [address] LOCATION: GPCU ADMIT DATE: 11/09/2016 Consultation DISCHARGE DATE: FAMILY PHYSICIAN: Osbaldo Johnson MD ATTENDING PHYSICIAN: Osbaldo Johnson On further review, he is still on tamsulosin. Since he is not voiding any on his own, we will discontinue that medication. Shalom is also more concerned about his GI status. He tells me he has only been passing whitish liquid. He has not had a good bowel movement. Consistent with that, he had a CT scan yesterday. I reviewed that. Importantly, he does not have any hydronephrosis. There is no upper tract change. He does have a complex cyst. It is small, and considering all of his comorbidities, I do not believe it is clinically significant. We will discontinue his Cedeño. We will discontinue his tamsulosin. I will follow him up as an outpatient. He is comfortable with that. IMPRESSION: 1. Chronic urinary retention. 2. Atonic bladder. 3. Chronic kidney disease. 4. Complex renal cyst. PLAN: As above. Thank you for the consultation. MD BALDEMAR BARRAZA/abby /[id number] d: 11/11/16 1234 t: 11/28/16 1039, CONSULTATION REPORT
--- NOTE | ~2016-11-09 | DS ---
PATIENT'S NAME: SHALOM LIZ [facility] AGE: 76 Y [address] ROOM: [place] [address] LOCATION: GPCU ADMIT DATE: 11/09/2016 Discharge Summary DISCHARGE DATE: 11/11/2016 FAMILY PHYSICIAN: Osbaldo Johnson MD ATTENDING PHYSICIAN: Osbaldo Johnson DISCHARGE DIAGNOSIS: Acute coronary syndrome. SECONDARY DIAGNOSES: 1. Stable angina, igjml-oz-sgfcxhy combined systolic and diastolic congestive heart failure. 2. Left greater than right pleural effusion. 3. Chronic atrial fibrillation. 4. Abnormal liver appearance on CT scan, question liver disease, but does not look like cirrhosis. 5. Adult-onset diabetes mellitus. 6. Chronic kidney disease, stage 3. PRINCIPAL PROCEDURES: Cardiac catheterization and CT scan of the abdomen and pelvis. DISCHARGE DIET: 1800 mL 2 g sodium, diabetic diet. ACTIVITIES: As tolerated. FOLLOW UP: Follow up is with Dr. Johnson in 7-[address] Sutton in 2-3 weeks. DISCHARGE MEDICATIONS: Include: 1. Furosemide 40 mg daily. 2. Glimepiride 2 mg every morning. 3. Imdur 60 mg daily in the a.m. 4. Lisinopril 2.5 mg daily. 5. Metoprolol tartrate 25 mg twice daily. 6. Omeprazole 40 mg daily. 7. Potassium chloride 20 mEq t.i.d. This was a dose change. 8. Pravastatin 40 mg daily. 9. Ranexa Extended Release 500 mg twice daily, which is a new medicine. 10. Tamsulosin was discontinued. 11. He can continue his Ulysses 5/325 1 tab every 4 hours as needed for pain. 12. On his warfarin, he is to hold doses 11/11/2016 and 11/12/2016, and then resume at 2.5 mg daily on 11/13/2016. We will check a level when we see him in the office. 13. He is to continue his BiPAP per home settings. 14. He can use Colace 100 mg b.i.d. if he develops constipation. PATIENT'S NAME: SHALOM LIZ [facility] AGE: 76 Y [address] ROOM: [place] [id number] LOCATION: GPCU ADMIT DATE: 11/09/2016 Discharge Summary DISCHARGE DATE: 11/11/2016 FAMILY PHYSICIAN: Osbaldo Johnson MD ATTENDING PHYSICIAN: Osbaldo Johnson HISTORY OF PRESENT ILLNESS: The patient is an elderly 76-year-old male who presented to the hospital with history of being recently hospitalized and just went home the day prior to admission. He then woke up around 6:30 in the morning with an episode of significant chest pain. He came in for evaluation. Dr. Stanley, his normal call center trainer was consulted, but he was unavailable; so, he had Dr. Fan see the patient. The patient was actually cath and his cath showed mild coronary artery disease of proximal LAD and midcircumflex with a focal 20% stenosis. They just recommended aggressive medical therapy for coronary artery disease. The patient also had a CT scan of the abdomen and pelvis that showed abnormal liver morphology possibly reflecting chronic disease correlate with LFTs, which is LFTs are normal, colonic ileus with nonspecific fluid in the rectum, simple complex cyst of the right ovary, and cardiomegaly with left greater than right pleural effusions. HOSPITAL COURSE: The patient was admitted to the hospital and taken emergently to the Auditor Appraiser by Dr. Fan and luckily there were no signs of significant coronary artery disease. She recommended risk factor modification. They did have a [place] rep interrogate his pacemaker. His nitro drip was discontinued. He was started on Ranexa and Imdur. We did order Urology consult concerned about possible urinary retention, but Dr. Sutton thought everything was fine and did not send him home with a chronic catheter. The patient overall made good improvement. We started him on some lisinopril. We placed him on compression socks and got him involved with cardiac rehab. We hydrated him while after his cath due to his history of chronic kidney disease. He also was given acetylcysteine. The patient's situation improved, his Cedeño was discontinued, and he was sent home. Followup is as mentioned above. We will follow the patient along. MD NAE HANNA/abby /[id number] d: 11/23/16 0002 t: 12/06/[address] [facility], DISCHARGE SUMMARY
--- NOTE | ~2016-11-09 | ER ---
PATIENT'S NAME: SHALOM LIZ [facility] AGE: 76 Y [address] ROOM: [place] [address] [facility] AD[facility]: 11/09/2016 ER/Outpatient Report DISCHARGE DATE: FAMILY PHYSICIAN: Osbaldo Johnson MD ATTENDING PHYSICIAN: Osbaldo Johnson ADDENDUM: Accumulated critical care time 30 minutes. MD KAIDEN NIEVES/modl /[id number] d: 11/09/16 1507 t: 11/10/16 0615, OUTPATIENT REPORT
--- NOTE | ~2016-11-09 | HP ---
PATIENT'S NAME: SHALOM LIZ [facility] AGE: 76 Y [address] ROOM: [id number] [place] [address] LOCATION: GPCU ADMIT DATE: 11/09/2016 History & Physical DISCHARGE DATE: FAMILY PHYSICIAN: Osbaldo Johnson MD ATTENDING PHYSICIAN: Osbaldo Johnson DATE OF SERVICE: ADMIT OBSERVATION NOTE CHIEF COMPLAINT: Chest pain. HISTORY OF PRESENT ILLNESS: The patient was actually just recently hospitalized. We actually just sent him home on . His diagnoses were mainly acute on chronic congestive heart failure, combined systolic and diastolic. We had adjusted his medications and sent him home. He then woke up around 6:30 this morning with episodes of significant chest pain. It is in his left anterior chest. He described it as a heavy weight on him. He is chronically short of breath and states it was no worse than usual. The pain was about at its worst 6/10. He received a nitro on the way here, and it dropped it down to a 2/10. He had another nitro in the ER, his chest pain then seemed to worsen, so he was placed on a nitro drip. He was also on O2. He had received baby aspirin on his way here a total of 4. I discussed the patient with the ER doctor, and I recommended admit to PCU and consulting Cardiology, Dr. Stanley, right away. Dr. Stanley had Dr. Fan actually evaluate the patient, and he did go directly to the [facility]. We got relatively good news there with just some nonobstructive coronary artery disease with 20% stenosis of his proximal LAD and his mid circumflex. Dr. Fan was just recommending medical management. The patient also reports that for the last several days, his stool has become more of a whitish shama colored in nature. He also has noticed some increasing abdominal pain. ALLERGIES: NONE KNOWN. CURRENT MEDICATIONS: 1. Furosemide 40 mg daily. 2. Glimepiride 2 mg every morning. 3. Metoprolol 25 mg b.i.d. 4. Omeprazole 40 mg daily. 5. Potassium 20 mEq daily. 6. Pravachol 40 mg daily. 7. Flomax 0.4 mg daily. 8. Warfarin 5 mg Mondays and and 2.5 mg rest of the week. PATIENT'S NAME: SHALOM LIZ [facility] AGE: 76 Y [address] ROOM: [id number] [place] [address] [facility] AD[facility] DATE: 11/09/2016 History & Physical DISCHARGE DATE: FAMILY PHYSICIAN: Osbaldo Johnson MD ATTENDING PHYSICIAN: Osbaldo Johnson 9. Verner 5/325 one tablet every 4 hours as needed for pain. 10. Colace p.r.n. as a stool softener. 11. We had recently discontinued his pioglitazone and Rythmol. He is in chronic atrial fib. 12. He is also on BiPAP. PREVIOUS SURGERIES: 1. History of cardiac cath in 2004, and now the most recent cardiac cath today. 2. He has had a history of a couple of cardioversions for chronic coarse atrial fib, one in 07/20/2014 and another one in 08/20/2013. 3. He had a colonoscopy in 10/2008 and it was repeated on 02/11/2016, which showed one polyp removed, which showed no diagnostic ulcerations. They just recommended a followup p.r.n. based on his age. 4. I actually then saw that he had a flexible sigmoidoscopy on 02/11/2016, it was normal to 47 cm, and they recommend colonoscopy in 3 years, which is due on 02/10/2019. 5. He had a previous history of a tubular adenoma. 6. 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 SOCIAL HISTORY: The patient rarely drinks. He does have some caffeine regularly, although he has been on 1800 mL fluid restriction, 2 g sodium diet. That was diabetic in nature since his discharge. He is and retired in nature. He used to smoke, but quit in 1989. He does wear his seat belt typically. PAST MEDICAL HISTORY: Chronic health problems include: 1. Arthritis. 2. 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 3. He has had a history of cellulitis of his legs. 4. Chronic kidney disease, stage 3. 5. 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 He had a history of a heart murmur at that time. 6. He has adult onset diabetes mellitus. 7. Coronary artery disease that is nonobstructive in nature. 8. Previous history of DVT. 9. Venous stasis dermatitis. 10. Essential hypertension. 11. Helicobacter pylori gastritis in the past. 12. He has had a previous umbilical hernia. PATIENT'S NAME: SHALOM LIZ [facility] AGE: 76 Y [address] ROOM: [id number] [place] [id number] LOCATION: GPCU ADMIT DATE: 11/09/2016 History & Physical DISCHARGE DATE: FAMILY PHYSICIAN: Osbaldo Johnson MD ATTENDING PHYSICIAN: Osbaldo Johnson 13. 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 14. Morbid obesity. 15. Obstructive sleep apnea, for which he is on BiPAP, and I believe he is on 4 L at h.s. 16. He has BPH and a history of urinary retention, for which he does self- cath. 17. He has known history of diabetes type 2 with stage 3 chronic kidney disease. 18. He has a previous history of ulcers of his lower extremities and venous stasis dermatitis. FAMILY HISTORY: Family history is remarkable for diabetes and emphysema. REVIEW OF SYSTEMS: CARDIAC: Chest pain as mentioned above. GI: Does complain of abdominal discomfort and kind of shama-colored stools, some of them are kind of mucusy. : He has had problems with increased urinary retention, and he has had been having difficulty with self cathing. PHYSICAL EXAMINATION: GENERAL: Shows an alert male, who is currently resting comfortably. VITAL SIGNS: He is afebrile. His vital signs are stable. HEENT: Normal. LUNGS: Clear. HEART: Irregularly irregular in a controlled rate. ABDOMEN: Obese, bowel sounds are positive. He does have some mild tenderness diffusely but no guarding or rebound. EXTREMITIES: About 1+ edema. LABORATORY DATA: CPK was 24, troponin I less than 0.040. His proBNP today was 6584, which is down from 7281. His white count is 7.5, hemoglobin 10.1, hematocrit 31.6, platelet count 235. His chemistry panel showed a glucose of 91, BUN 43, creatinine 1.8, sodium 143, potassium 3.4, chloride 105, CO2 of 28, calcium 8.4, albumin 2.7, EGFR is 37. His pro-time is 27.4 with an INR of 2.4. CK-MB was less than 0.5. RADIOLOGY DATA: Chest x-ray shows enlarged cardiac silhouette. Enlargement of the central pulmonary vessels and perihilar interstitial markings suggesting interstitial edema and CHF. ASSESSMENT: PATIENT'S NAME: SHALOM LIZ [facility] AGE: 76 Y [address] ROOM: [id number] [place] [id number] [facility] ADMIT DATE: 11/09/2016 History & Physical DISCHARGE DATE: FAMILY PHYSICIAN: Osbaldo Johnson MD ATTENDING PHYSICIAN: Osbaldo Johnson 1. Chest pain, acute coronary syndrome with cardiac catheterization performed showing nonobstructive coronary artery disease with a 20% lesion of the mid LAD and 20% lesion of the proximal circumflex. 2. History of acute on chronic congestive heart failure, mixed diastolic and systolic in nature. 3. Hypertension. 4. Hyperlipidemia. 5. Adult onset diabetes mellitus with stage 3 chronic kidney disease. 6. Abdominal discomfort with complaints of shama-colored stools. 7. Mild anemia. PLAN: I am going to repeat the patient's laboratory data in the morning. We will re- evaluate them then. They have started the patient on some Ranexa. I am wondering about the possibility of starting the patient on Entresto. We will discuss this with Cardiology. Otherwise going to do a little bit of workup. We will check some lab work. We may need to proceed with a little bit more of a GI workup. Finally with his urinary retention, we will get Urology involved. I think we may have to consider doing a suprapubic catheter on this patient. MD NAE HANNA/modl /[id number] D: [id number] T: [id number] HISTORY & PHYSICAL
[~2016-11-09 08:25] MED LIST changes: -IMDUR60 MG PO; -K-TAB 10MEQ10 MEQ PO; -RANEXA ER500 MG PO; -ZESTRIL2.5 MG PO
[2016-11-09 08:53] LABS: BASOPHIL % 0.3 %; EOSINOPHIL # 0.2 K/uL (0.0-0.5); EOSINOPHIL % 2.9 %; HEMATOCRIT 31.6 % (37.0-53.0); HEMOGLOBIN 10.1 g/dL (11.0-16.0); IMMATURE GRANULOCYTE # 0.1 K/uL (0.0-0.3); IMMATURE GRANULOCYTE % 0.7 %; LYMPHOCYTE # 0.5 K/uL (0.8-4.0); LYMPHOCYTE % 7.2 %; MCH 29.2 pg (27.0-34.0); MCV 91.3 fl (83.0-98.0); MONOCYTE # 0.8 K/uL (0.0-1.0); MONOCYTE % 10.6 %; NEUTROPHIL # (ANC) 5.9 K/uL (1.4-9.0); NEUTROPHIL % 78.3 %; NRBC % 0 /100WBC (0-0.00); PLATELET COUNT 235 K/uL (150-450); RBC 3.46 M/uL (3.50-5.50); RDW-CV 14.6 % (11.9-14.6); WBC 7.5 K/uL (4.0-11.0)
[2016-11-09 09:00] LABS: INR - (THERAPEUTIC) 2.4 (0.9-1.1); PROTIME 27.4 SECONDS (9.6-11.1); PTT 46 SECONDS (25-32)
[2016-11-09 09:17] LABS: ALBUMIN 2.7 gm/dL (3.5-5.0); ALK PHOS 81 IU/L (33-138); ALT 12 IU/L (12-78); ANION GAP 13.4 (10.0-19.0); AST 14 IU/L (10-40); BLOOD UREA NITROGEN 43 mg/dL (6-24); CALCIUM 8.4 mg/dL (8.5-10.5); CHLORIDE 105 mMol/L (96-110); CO2 28 mMol/L (22-32); CPK 24 IU/L (35-332); CREATININE 1.8 mg/dL (0.6-1.3); ESTIMATED GFR (MDRD EQUATION) 37; POTASSIUM 3.4 mMol/L (3.7-5.1); SODIUM 143 mMol/L (135-145); TOTAL BILIRUBIN 0.6 mg/dL (0.0-1.5); TOTAL PROTEIN 6.3 g/dL (6.0-8.4)
[2016-11-09 11:03] LABS: CPK 24 IU/L (35-332)
--- NOTE | 2016-11-09 12:18 | NUR ---
Pt is 76 y/o male admit for chest pain>heart cath for . Cardiology to consult. Pt came to ED with chest pain and was taken to manager lab but no intervention needed. No allergies. Pt was just dismissed yesterday after spending about 6 days here. Hx htn,PE,edema legs,DVT,atrial flutter,pacemaker,SOB daily,sleep apnea-bipap,gout,arthritis,urinary retention,UTI's,anxiety,DM. Pt alert and oriented x3. Resides at home with his .
--- NOTE | 2016-11-09 15:33 | NUR ---
Significant Event: A/O. Weaned to RA. VSS. C/o chest pain, describes as an aching and rates about 2/10. Ranexa and imdur started once nitro gtt off. Up with 2 assist d/t not being able to use R) arm. R) radial cath, site puffy upon arrival from senior cytogenetics laboratory director, marked and site improving. Cedeño to DD with good UOP. Follow up: plan to dismiss tomorrow.
[2016-11-10 05:13] LABS: HEMATOCRIT 31.6 % (37.0-53.0); HEMOGLOBIN 9.9 g/dL (11.0-16.0); MCH 28.9 pg (27.0-34.0); MCHC 31.3 gm/dL (32.0-36.5); MCV 92.1 fl (83.0-98.0); MPV 9.1 fl (9.4-12.4); PLATELET COUNT 234 K/uL (150-450); RBC 3.43 M/uL (3.50-5.50); RDW-CV 14.5 % (11.9-14.6); WBC 7.3 K/uL (4.0-11.0)
--- NOTE | 2016-11-10 05:15 | NUR ---
Significant Event: Patient is alert/oriented x3. Vital signs stable. On room air with CPAP at night. Denies any pain. Right radial site covered with band-aid and coban wrap, site is ecchymotic but soft and non-tender, CSM WNL. Cedeño in place (patient self-caths at home) with good UOP. Follow up: Urology consult this AM due to patient having recent difficulties with self-cathing at home. Need one hematest. Possible dismissal to home today.
[2016-11-10 05:25] LABS: INR - (THERAPEUTIC) 3.2 (0.9-1.1); PROTIME 36.8 SECONDS (9.6-11.1)
[2016-11-10 05:30] LABS: ALBUMIN 2.5 gm/dL (3.5-5.0); ANION GAP 13.5 (10.0-19.0); CALCIUM 8.2 mg/dL (8.5-10.5); CREATININE 1.6 mg/dL (0.6-1.3); POTASSIUM 3.5 mMol/L (3.7-5.1); TOTAL PROTEIN 6.3 g/dL (6.0-8.4)
[2016-11-10 05:44] LABS: TOTAL BILIRUBIN 0.9 mg/dL (0.0-1.5)
[2016-11-10 06:07] LABS: ABSOLUTE NEUTROPHIL CT (ANC) 5.8 K/uL (1.4-9.0); BANDED NEUTROPHIL # 0.4 K/uL (0.0-0.1); BANDED NEUTROPHILS % 5 %; LYMPHOCYTE # 0.9 K/uL (0.8-4.0); LYMPHOCYTE % 13 %; MONOCYTE # 0.3 K/uL (0.0-1.0); SEGMENTED NEUTROPHIL # 5.4 K/uL (1.4-9.0); SEGMENTED NEUTROPHIL % 74 %
--- NOTE | 2016-11-10 12:47 | NUR ---
Introduced self and CM role to patient. He lives in [place], [place] with his . He states he is a little nervous about returning back home and being alone at times when his is gone, but it's what he was doing before. He states he has a walker for getting around and his will be around to help him. He has two daughters that live in [place], and pt said that one his daughters is going to come and help them meal prep healthy options beginning of next week. Plan to discharge home at this time. Possible dismissal tomorrow. Wrote CM name on markerboard and told him to contact us if any concerns or plans change. CM rn [employer].
--- NOTE | 2016-11-10 16:24 | NUR ---
Significant Event: A&O x3. VSS on RA, wears CPAP at night. Pt denies pain. Up with 2 assist d/t limited use of right arm. Right radial site covered with coban, site is ecchymotic but CSM WNL. Right hand IV running sodium bicarb Cedeño catheter in place with adequate UOP. Follow Up: Plan to d/c tomorrow.
[2016-11-11 05:04] LABS: HEMATOCRIT 31.5 % (37.0-53.0); HEMOGLOBIN 9.9 g/dL (11.0-16.0); MCH 28.5 pg (27.0-34.0); MCHC 31.4 gm/dL (32.0-36.5); MCV 90.8 fl (83.0-98.0); MPV 9.7 fl (9.4-12.4); PLATELET COUNT 256 K/uL (150-450); RBC 3.47 M/uL (3.50-5.50); RDW-CV 14.5 % (11.9-14.6); WBC 7.7 K/uL (4.0-11.0)
[2016-11-11 05:10] LABS: INR - (THERAPEUTIC) 3.4 (0.9-1.1); PROTIME 39.5 SECONDS (9.6-11.1)
[2016-11-11 05:17] LABS: ANION GAP 14.6 (10.0-19.0); CALCIUM 8.6 mg/dL (8.5-10.5); CREATININE 1.4 mg/dL (0.6-1.3); POTASSIUM 3.6 mMol/L (3.7-5.1)
[2016-11-11 05:51] LABS: ABSOLUTE NEUTROPHIL CT (ANC) 6.2 K/uL (1.4-9.0); LYMPHOCYTE # 0.6 K/uL (0.8-4.0); LYMPHOCYTE % 8 %; MONOCYTE # 0.7 K/uL (0.0-1.0); SEGMENTED NEUTROPHIL # 6.2 K/uL (1.4-9.0); SEGMENTED NEUTROPHIL % 80 %
--- NOTE | 2016-11-11 06:24 | NUR ---
Significant Event: Patient alert and oriented. Denies pain. VSS on room air. Depressed mood. Cedeño patent. Loose watery bowel movement x1. Rested well throughout shift. Pleasant and cooperative with cares. Follow up: Possible discharge today
[2016-11-11] MEDS ORDERED: RANEXA ER500 MG PO (13:29)
[2016-11-11] MEDS ORDERED: ZESTRIL2.5 MG PO (13:31)
[2016-11-11] MEDS ORDERED: K-TAB 10MEQ10 MEQ PO (13:33)
[2016-11-11] MEDS ORDERED: IMDUR60 MG PO (13:35)
--- NOTE | 2016-11-11 14:23 | NUR ---
Significant Event: PT A&O x3. VSS, on room air. Denies CP. PT ambulated in [place] x2. Up to bathroom, passing gas, small mucous stools. Cedeño removed-450ml out. IV dc'd to R)hand. Coban removed from R)radial cath site, bandaid intact. PT ambulates with walker, gait belt and 1 assist. Dismissal instructions/prescriptions given to PT/spouse, voiced understanding. Urinal/graduated cylinder sent home with PT so he may measure output. PT wheeled to lobby by RN. Follow up:
== END 2016-11-11 14:20 | disposition disaster alternative care site (69) ==
LOC: GMED 08:25 → GPCU 10:24
PROVIDERS: Emergency Medicine; Internal Medicine Interventional Cardiology; ADMIT Obstetrics & Gynecology Obstetrics
DX: I24.9 Acute ischemic heart disease, unspecified (principal); I13.0 Hypertensive heart and chronic kidney disease with heart failure and stage 1 through stage 4 chronic kidney disease, or unspecified chronic kidney disease; N18.3 Chronic kidney disease, stage 3 (moderate); I50.43 Acute on chronic combined systolic (congestive) and diastolic (congestive) heart failure; I25.10 Atherosclerotic heart disease of native coronary artery without angina pectoris; I48.2 Chronic atrial fibrillation; E11.22 Type 2 diabetes mellitus with diabetic chronic kidney disease; K29.70 Gastritis, unspecified, without bleeding; G47.33 Obstructive sleep apnea (adult) (pediatric); D64.9 Anemia, unspecified; E78.5 Hyperlipidemia, unspecified; R33.8 Other retention of urine; N31.2 Flaccid neuropathic bladder, not elsewhere classified; E66.01 Morbid (severe) obesity due to excess calories; Z68.41 Body mass index [BMI] 40.0-44.9, adult; Z86.718 Personal history of other venous thrombosis and embolism; Z79.01 Long term (current) use of anticoagulants; Z98.890 Other specified postprocedural states
CPT/HCPCS: G0378; J1644; J2250; J3010; J7030; J7060; Q9967

== ENCOUNTER → 2016-11-09 | Outpatient (CLI) | payer MEDICARE, OTHER ==
[~2016-11-09] MED LIST changes: +IMDUR60 MG PO; +K-TAB 10MEQ10 MEQ PO; +K-TAB ER20 MEQ PO; +OMEPRAZOLE40 MG PO; +RANEXA ER500 MG PO; +ZESTRIL2.5 MG PO
== END | disposition disaster alternative care site (69) ==
LOC: GAMB 07:44
DX: R07.9 Chest pain, unspecified (principal)

== ENCOUNTER → 2017-01-05 | Outpatient (CLI) | payer MEDICARE, OTHER ==
[~2017-01-05] MED LIST changes: +IMDUR60 MG PO; +K-TAB 10MEQ10 MEQ PO; +RANEXA ER500 MG PO; +ZESTRIL2.5 MG PO
[2017-01-05 14:03] LABS: ANION GAP 15.8 (10.0-19.0); CALCIUM 9.1 mg/dL (8.5-10.5); CREATININE 1.7 mg/dL (0.6-1.3); MAGNESIUM 1.9 mg/dL (1.8-2.6); PHOSPHORUS 2.2 mg/dL (2.5-4.9); POTASSIUM 4.8 mMol/L (3.7-5.1)
== END | disposition disaster alternative care site (69) ==
LOC: LCNC 13:22
PROVIDERS: Internal Medicine Interventional Cardiology
DX: Z79.899 Other long term (current) drug therapy (principal)